=== PATIENT | male | born 1990 | race Caucasian/White ===

== ENCOUNTER 2018-12-16 12:06 | Emergency (ER) | payer OTHER ==
[~2018-12-16] VITALS: Ht 185.4 cm; Wt 91.2 kg
[~2018-12-16 12:06] MED LIST: COLACE100 MG PO; KEFLEX500 MG PO; LAC PO; NOR10T PO; ZESTRIL5 MG PO
[2018-12-16 12:22] VITALS: Ht 185.4 cm; Wt 91.2 kg
[2018-12-16 12:58] LABS: BASOPHIL % 0.5 % (0-2); PLATELET COUNT 265 x10^3mcL (130-400)
[2018-12-16 13:11] LABS: CALCIUM 9.1 mg/dL (8.5-10.1); CARBON DIOXIDE 32.7 mmol/L (21-32); CHLORIDE SERUM 103 mmol/L (98-107); GFR1 > 60 mL/min; GLUCOSE SERUM 105 mg/dL (74-106); POTASSIUM SERUM 4.1 mmol/L (3.5-5.1); SODIUM SERUM 141 mmol/L (136-145)
[2018-12-16 13:16] LABS: ALBUMIN 4.2 g/dL (3.4-5.0); ALKALINE PHOSPHATASE 76 U/L (46-116); ALT/SGPT 29 U/L (16-63); AST/SGOT 17 U/L (15-37); BILIRUBIN TOTAL 0.36 mg/dL (0.20-1.00); LIPASE 128 IU/L (73-393); TOTAL PROTEIN, SERUM 7.5 g/dL (6.4-8.2)
[2018-12-16 14:41] VITALS: BP 132/71
== END 2018-12-16 14:41 | disposition home or self-care (01) ==
LOC: ED 12:06
PROVIDERS: Emergency Medicine
DX: R10.30 Lower abdominal pain, unspecified (principal); K62.5 Hemorrhage of anus and rectum; Z90.89 Acquired absence of other organs
CPT/HCPCS: 36415; J1885